=== PATIENT | male | born 1985 ===

== ENCOUNTER → 2017-11-11 | Outpatient (CLI) | payer BC ==
--- NOTE | 2017-11-11 08:57 | DIAGNOSTIC IMAGING REPORT ---
L KNEE 4 OR MORE CLINICAL HISTORY: LEFT KNEE PAIN pain COMPARISON: None. DISCUSSION: The bones and joint spaces appear intact. There is no evidence of fracture, dislocation or bony disease. There is no evidence for soft tissue swelling. IMPRESSION: Negative study. The above report was generated using voice recognition software. It may contain grammatical, syntax or spelling errors. Electronically signed by: Paul Weller M.D. 11/11/2017 8:56 AM Dictated Date/Time: 11/11/2017 8:56 AM
== END | disposition home or self-care (01) ==
LOC: C.RDSM 12:28
PROVIDERS: ATTEND Internal Medicine
DX: M25.562 Pain in left knee (principal)